=== PATIENT | female | born 1975 | race Caucasian/White ===

== ENCOUNTER 2021-04-19 06:19 | Day surgery (SDC) | payer BC ==
[2021-04-19] MEDS ORDERED: Lactated Ringers 1,000 ML IV SCH (06:30)
[2021-04-19] MEDS ORDERED: Xylocaine-Mpf 2% 5 Ml Vial ONE (07:56)
[2021-04-19] MEDS ORDERED: DIPRIVAN 200 MG/20 ML IV ONE ×2 (07:56→08:07)
[2021-04-19] MEDS ORDERED: SUBLIMAZE 100 MCG/2 ML ONE (07:59)
[2021-04-19 09:32] VITALS: BP 122/89; PULSE 71; O2SAT 96
--- NOTE | 2021-04-19 12:27 | OP ---
SURGERY DATE/TIME: 04/19/2021 0756 PREOPERATIVE DIAGNOSIS: Rectal bleeding. POSTOPERATIVE DIAGNOSIS: Early sigmoid diverticulosis, external hemorrhoids otherwise normal colon. PROCEDURE: Colonoscopy. SURGEON: Dr. Romero. ANESTHESIA: MAC. Medications given by anesthesia department. HISTORY: The patient is a 46-year-old white female who reports that she has been bleeding over the past couple of week's bright red in nature and lower quadrant abdomen pain, which was felt to be diverticulosis which is treated with Levaquin. The patient reports that the pain is essentially almost gone at this point. The patient reports that her mother has had colon polyps and is concerned and wishes to have colon evaluation performed. The patient was described the risks of the procedure including the risk of perforation, phlebitis, untoward reaction to medication, bleeding and missed lesions. The patient verbalized her understanding and desired to have the procedure performed. DESCRIPTION OF PROCEDURE: The patient was given the medications by the anesthesia department. She had continuous pulse oximetry, ECG monitoring, intermittent blood pressure monitoring. She is placed in the left lateral decubitus position. Digital rectal examination was performed and revealed external hemorrhoids and no active bleeding. No masses were felt. The flexible Olympus pediatric colonoscope was used to intubate the rectum. A view of the colon was developed sequentially to the cecum including a short distance into the terminal ileum. Upon insertion and withdrawal, there was noted to be scattered, very mild early sigmoid diverticulosis. There were no bleeding lesions noted throughout the examination. The scope was removed from the patient who tolerated the procedure well and was sent back to OP recovery in good condition. The prep was noted to be good.
== END 2021-04-19 09:30 | disposition home or self-care (01) ==
LOC: SDC 06:19
PROVIDERS: ATTEND Family Medicine
DX: K57.30 Diverticulosis of large intestine without perforation or abscess without bleeding (principal); K64.4 Residual hemorrhoidal skin tags
CPT/HCPCS: J2704; J3010

== ENCOUNTER 2021-10-03 13:06 | Emergency (ER) | payer BC ==
--- NOTE | 2021-10-03 13:37 | ERPHSYRPT ---
- History of Present Illness Time Seen by Provider: 10/03/21 13:20 Source: patient Exam Limitations: no limitations Patient Subjective Stated Complaint: Fever Triage Nursing Assessment: Patient brought back to ED per w/c and transferred to bed with assist of 1. Patient A+O X 3. Patient's skin flushed, warm and dry. Patient complains of fever, cough, SOB, headache, bodyaches, and fatigue since Sunday. Patient complains of body aches /. Physician History: Patient is a 46-year-old female presents to emergency department for evaluation of viral-like symptoms. Patient has been experiencing fever cough shortness of breath nausea vomiting diarrhea body aches frontal headache and fatigue for approximately 3 days. Patient took ibuprofen this morning. Patient rates her body aches at 10 out of 10. No trauma. No rash. Symptoms are constant. Symptoms are moderate in intensity. No specific worsening improving factors. Patient is not vaccinated against COVID-19. No obvious sick contacts. Patient voices no other complaints or concerns at this time. Portions of this note were created with voice recognition technology. 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 Exact time is unknown.) Associated Symptoms: cough, headache, nausea/vomiting, shortness of breath Allergies/Adverse Reactions: No Known Drug Allergies Allergy (Verified 10/03/21 13:15) Home Medications: Bumetanide 1 mg PO DAILY 04/13/21 [History] Citalopram Hydrobromide 20 mg* [ceLEXa 20 MG] 20 mg PO DAILY 04/13/21 [History] Furosemide 20 mg [Lasix 20 mg] 20 mg PO DAILY 04/13/21 [History] Hydrochlorothiazide 25 mg [hydroDIURIL 25 MG] 25 mg PO DAILY 04/13/21 [History] Omeprazole 40 mg PO DAILY 04/13/21 [History] Potassium Chloride [Klor-Con M20] 20 meq PO UD 04/13/21 [History] Sumatriptan Succinate [Imitrex] 100 mg PO UD 04/13/21 [History] Buspirone HCl 5 mg [Buspar 5 mg] 5 mg PO DAILY 04/19/21 [History] levoFLOXacin [Levofloxacin] 500 mg PO DAILY 04/19/21 [History] Hx Tetanus, Diphtheria Vaccination/Date Given: Yes Hx Influenza Vaccination/Date Given: No Hx Pneumococcal Vaccination/Date Given: No Immunizations Up to Date: Yes Travel Risk - International Travel Have you traveled outside of the country in past 3 weeks: No - Coronavirus Screening Are you exhibiting any of the following symptoms?: No Symptoms: Fever, Cough: New Onset, Shortness of Breath, Vomiting/Diarrhea, H eadaches/Body Aches/Fatigue Close contact with a COVID-19 positive Pt in past 14-21 Days: No - Vaccine Status Have you recieved a Covid-19 vaccination: No - Review of Systems Constitutional: No Symptoms, No Fever, No Chills Eyes: No Symptoms Ears, Nose, & Throat: No Symptoms Respiratory: No Symptoms, No Cough, No Dyspnea Cardiac: No Symptoms, No Chest Pain, No Edema, No Syncope Abdominal/Gastrointestinal: No Symptoms, No Abdominal Pain, No Nausea, No Vomiting, No Diarrhea Genitourinary Symptoms: No Symptoms, No Dysuria Musculoskeletal: No Symptoms, No Back Pain, No Neck Pain Skin: No Symptoms, No Rash Neurological: No Symptoms, No Dizziness, No Focal Weakness, No Sensory Changes Psychological: No Symptoms Endocrine: No Symptoms Hematologic/Lymphatic: No Symptoms Immunological/Allergic: No Symptoms All Other Systems: Reviewed and Negative - Past Medical History Pertinent Past Medical History: No Neurological History: Migraines ENT History: No Pertinent History Cardiac History: No Pertinent History Respiratory History: No Pertinent History Endocrine Medical History: No Pertinent History Musculoskeletal History: No Pertinent History GI Medical History: No Pertinent History History: No Pertinent History Psycho-Social History: Anxiety Female Reproductive Disorders: No Pertinent History Other Medical History: leaky heart valve - Past Surgical History Past Surgical History: Yes Neuro Surgical History: No Pertinent History Cardiac: No Pertinent History Respiratory: No Pertinent History Gastrointestinal: No Pertinent History Genitourinary: No Pertinent History Musculoskeletal: No Pertinent History Female Surgical History: Tubal Ligation Other Surgical History: skin cancer removed - Social History Smoking Status: Never smoker Exposure to second hand smoke: Yes Drug Use: none Patient Lives Alone: No - Female History Hx Last Menstrual Period: last week Hx Now: No - Nursing Vital Signs Nursing Vital Signs: Initial Vital Signs Temperature 103.1 F 10/03/21 13:16 Pulse Rate 94 H 10/03/21 13:16 Respiratory Rate 18 10/03/21 13:16 Blood Pressure 137/85 10/03/21 13:16 O2 Sat by Pulse Oximetry 98 10/03/21 13:16 Pain Scale Pain Intensity 2 - Physical Exam General Appearance: alert, other (Skin is warm to touch) Eye Exam: PERRL/EOMI, eyes nml inspection, No post op pupil defect (R) ENT Exam: normal ENT inspection, no apparent trauma, hearing grossly normal, TMs normal, pharynx normal, nasal congestion, No pharyngeal erythema, No tonsillar exudate Neck Exam: normal inspection, supple, full range of motion, No meningismus Respiratory Exam: normal breath sounds, lungs clear, no respiratory distress, No no accessory muscle use, No decreased breath sounds Cardiovascular/Chest Exam: normal heart sounds, regular rate/rhythm, No murmur, No edema Gastrointestinal/Abdominal Exam: soft, non tender, no distention Extremity Exam: non-tender, normal range of motion, normal inspection, normal capillary refill Neurologic Exam: alert, oriented x 3, cooperative, communications tower climber II-XII nml as tested, normal mood/affect, sensation nml, No motor deficits Skin Exam: normal color, warm, dry, No rash Lymphatic: No adenopathy SpO2 Interpretation: normal SpO2: 98 O2 Delivery: Room Air - Course Nursing assessment & vital signs reviewed: Yes EKG Interpreted by Me: RATE (98), Sinus Rhythm, NORMAL AXIS, NORMAL INTERVALS - Radiology Exams Chest X-ray Interpretation: Teleradiologist Report (Negative chest x-ray.) Ordered Tests: Active Orders 24 hr Category Date Time Status IV Insertion STAT Care 10/03/21 13:38 Active Pulse Oximetry (ED) STAT Care 10/03/21 13:38 Active CHEST 1 VIEW (PORTABLE) Stat Exams 10/03/21 13:39 Completed BLOOD CULTURE Stat Lab 10/03/21 14:00 Received CBC W DIFF Stat Lab 10/03/21 13:20 Completed CMP Stat Lab 10/03/21 13:20 Completed CULTURE,URINE Stat Lab 10/03/21 14:54 Received HCG,QUALITATIVE URINE Stat Lab 10/03/21 14:54 Completed Lactic Acid Stat Lab 10/03/21 13:38 Completed Lactic Acid Stat Lab 10/03/21 15:53 Completed UA W/RFX CULTURE Stat Lab 10/03/21 14:54 Completed Medication Summary Generic Name Dose Route Start Last Admin Trade Name Kristen PRN Reason Stop Dose Admin Magnesium Sulfate/Dextrose 100 mls @ 100 mls/hr 10/03/21 15:15 10/03/21 15:57 Magnesium 1 Gm / 100 Ml D5w IV 10/03/21 17:14 100 mls/hr Q1H KADIE Administration Discontinued Medications Generic Name Dose Route Start Last Admin Trade Name Kristen PRN Reason Stop Dose Admin Acetaminophen 975 mg 10/03/21 13:38 10/03/21 14:09 Acetaminophen 325 Mg Tablet PO 10/03/21 13:39 975 mg STAT STA Administration Acetaminophen Confirm 10/03/21 14:03 Acetaminophen 325 Mg Tablet Administered 10/03/21 14:04 Dose 975 mg .ROUTE .STK-MED ONE Sodium Chloride 1,000 mls @ 999 mls/hr 10/03/21 13:38 10/03/21 15:16 Sodium Chloride 0.9% 1000 Ml IV 10/03/21 14:38 Infused .Q1H1M STA Infusion Sodium Chloride Confirm 10/03/21 14:04 Sodium Chloride 0.9% 1000 Ml Administered 10/03/21 14:05 Dose 1,000 mls @ ud .ROUTE .STK-MED ONE Sodium Chloride 1,000 mls @ 999 mls/hr 10/03/21 15:17 10/03/21 16:33 Sodium Chloride 0.9% 1000 Ml IV 10/03/21 16:17 Infused .Q1H1M STA Infusion Sodium Chloride Confirm 10/03/21 15:18 Sodium Chloride 0.9% 1000 Ml Administered 10/03/21 15:19 Dose 1,000 mls @ ud .ROUTE .STK-MED ONE Ceftriaxone Sodium/Dextrose 1 g in 50 mls @ 100 mls/hr 10/03/21 16:02 10/03/21 17:06 Rocephin 1 Gm-D5w 50 Ml Bag IV 10/03/21 16:31 Infused STAT STA Infusion Ceftriaxone Sodium/Dextrose Confirm 10/03/21 16:23 Rocephin 1 Gm-D5w 50 Ml Bag Administered 10/03/21 16:24 Dose 1 g in 50 mls @ ud IV .STK-MED ONE Ketorolac Tromethamine 30 mg 10/03/21 13:40 10/03/21 14:10 Ketorolac Tromethamine 30 Mg/Ml Inj IV 10/03/21 13:41 30 mg STAT ONE Administration Ketorolac Tromethamine Confirm 10/03/21 14:03 Ketorolac Tromethamine 30 Mg/Ml Inj Administered 10/03/21 14:04 Dose 30 mg .ROUTE .STK-MED ONE Potassium Chloride 40 meq 10/03/21 15:11 10/03/21 15:20 Potassium Chloride Tab 10 Meq Tab PO 10/03/21 15:12 40 meq STAT ONE Administration Potassium Chloride Confirm 10/03/21 15:18 Potassium Chloride Tab 10 Meq Tab Administered 10/03/21 15:19 Dose 40 meq PO .STK-MED ONE Prochlorperazine Edisylate 10 mg 10/03/21 13:40 10/03/21 14:11 Prochlorperazine Edisylate 10 Mg/2 Ml Vial IV 10/03/21 13:41 10 mg STAT ONE Administration Prochlorperazine Edisylate Confirm 10/03/21 14:04 Prochlorperazine Edisylate 10 Mg/2 Ml Vial Administered 10/03/21 14:05 Dose 10 mg .ROUTE .STK-MED ONE Lab/Rad Data: Laboratory Result Diagrams 10/03/21 13:20 10/03/21 13:20 Laboratory Results 10/03/21 10/03/21 10/03/21 Range/Units Unknown 15:53 14:54 WBC (4.0-10.5) x10^3/uL RBC (4.1-5.4) x10^6/uL Hgb (12.0-16.0) g/dL Hct (35-47) % MCV (78-100) fL MCH (26-32) pg MCHC (32-36) g/dL RDW (11.5-14.0) % Plt Count (150-450) x10^3/uL MPV (7.5-11.0) fL Gran % (36.0-66.0) % Immature Gran % (Auto) (0.00-0.4) % Nucleat RBC Rel Count (0.00-0.1) % Eos # (Auto) (0-0.5) x10^3/uL Immature Gran # (Auto) (0.00-0.03) x10^3u/L Absolute Lymphs (auto) (1.0-4.6) x10^3/uL Absolute Monos (auto) (0.0-1.3) x10^3/uL Absolute Nucleated RBC (0.00-0.01) x10^3u/L Lymphocytes % (24.0-44.0) % Monocytes % (0.0-12.0) % Eosinophils % (0.00-5.0) % Basophils % (0.0-0.4) % Absolute Granulocytes (1.4-6.9) x10^3/uL Basophils # (0-0.4) x10^3/uL Sodium (137-145) mmol/L Potassium (3.5-5.1) mmol/L Chloride (98-107) mmol/L Carbon Dioxide (22-30) mmol/L Anion Gap (5-15) MEQ/L BUN (7-17) mg/dL Creatinine (0.52-1.04) mg/dL Estimated GFR ML/MIN Glucose (74-106) mg/dL Lactic Acid 0.7 (0.4-2.0) Calcium (8.4-10.2) mg/dL Total Bilirubin (0.2-1.3) mg/dL AST (14-36) U/L ALT (0-35) U/L Alkaline Phosphatase (38-126) U/L Serum Total Protein (6.3-8.2) g/dL Albumin (3.5-5.0) g/dL Urinalys Dipstick Clnc MAIN LAB Urine Color DARK YELLOW (YELLOW) Urine Appearance SLIGHTLY CLOUDY (CLEAR) Urine pH 6.0 (5-6) Ur Specific [place] 1.020 (1.005-1.025) POC Urine Protein Conf 100 (Negative) Urine Ketones NEGATIVE (NEGATIVE) Urine Nitrite NEGATIVE (NEGATIVE) Urine Bilirubin NEGATIVE (NEGATIVE) Urine Urobilinogen 1 (0-1) mg/dL Urine Leukocytes SMALL (NEGATIVE) Urine WBC (Auto) >100 (0-5) /HPF Urine RBC (Auto) 6-10 (0-2) /HPF U Epithel Cells (Auto) RARE (FEW) /HPF Urine Bacteria (Auto) PACKED (NEGATIVE) /HPF Urine RBC MODERATE (0-5) Pk/ul Urine Mucus (Auto) SLIGHT (NEGATIVE) /HPF Ur Culture Indicated? YES Urine Glucose 100 (NEGATIVE) mg/dL Urine HCG, Qual (Negative) Influenza Type A Ag NEGATIVE (NEGATIVE) Influenza Type B Ag NEGATIVE (NEGATIVE) RSV (PCR) NEGATIVE (Negative) SARS-CoV-2 (PCR) NEGATIVE (NEGATIVE) Slides for Path Review 10/03/21 10/03/21 10/03/21 Range/Units 14:54 13:38 13:20 WBC (4.0-10.5) x10^3/uL RBC (4.1-5.4) x10^6/uL Hgb (12.0-16.0) g/dL Hct (35-47) % MCV (78-100) fL MCH (26-32) pg MCHC (32-36) g/dL RDW (11.5-14.0) % Plt Count (150-450) x10^3/uL MPV (7.5-11.0) fL Gran % (36.0-66.0) % Immature Gran % (Auto) (0.00-0.4) % Nucleat RBC Rel Count (0.00-0.1) % Eos # (Auto) (0-0.5) x10^3/uL Immature Gran # (Auto) (0.00-0.03) x10^3u/L Absolute Lymphs (auto) (1.0-4.6) x10^3/uL Absolute Monos (auto) (0.0-1.3) x10^3/uL Absolute Nucleated RBC (0.00-0.01) x10^3u/L Lymphocytes % (24.0-44.0) % Monocytes % (0.0-12.0) % Eosinophils % (0.00-5.0) % Basophils % (0.0-0.4) % Absolute Granulocytes (1.4-6.9) x10^3/uL Basophils # (0-0.4) x10^3/uL Sodium 130 L (137-145) mmol/L Potassium 3.0 L* (3.5-5.1) mmol/L Chloride 93 L (98-107) mmol/L Carbon Dioxide 26 (22-30) mmol/L Anion Gap 14.0 (5-15) MEQ/L BUN 20 H (7-17) mg/dL Creatinine 1.27 H (0.52-1.04) mg/dL Estimated GFR 48.1 ML/MIN Glucose 212 H (74-106) mg/dL Lactic Acid 2.2 H (0.4-2.0) Calcium 8.8 (8.4-10.2) mg/dL Total Bilirubin 0.70 (0.2-1.3) mg/dL AST 43 H (14-36) U/L ALT 28 (0-35) U/L Alkaline Phosphatase 102 (38-126) U/L Serum Total Protein 7.9 (6.3-8.2) g/dL Albumin 3.9 (3.5-5.0) g/dL Urinalys Dipstick Clnc Urine Color (YELLOW) Urine Appearance (CLEAR) Urine pH (5-6) Ur Specific [place] (1.005-1.025) POC Urine Protein Conf (Negative) Urine Ketones (NEGATIVE) Urine Nitrite (NEGATIVE) Urine Bilirubin (NEGATIVE) Urine Urobilinogen (0-1) mg/dL Urine Leukocytes (NEGATIVE) Urine WBC (Auto) (0-5) /HPF Urine RBC (Auto) (0-2) /HPF U Epithel Cells (Auto) (FEW) /HPF Urine Bacteria (Auto) (NEGATIVE) /HPF Urine RBC (0-5) Pk/ul Urine Mucus (Auto) (NEGATIVE) /HPF Ur Culture Indicated? Urine Glucose (NEGATIVE) mg/dL Urine HCG, Qual NEGATIVE (Negative) Influenza Type A Ag (NEGATIVE) Influenza Type B Ag (NEGATIVE) RSV (PCR) (Negative) SARS-CoV-2 (PCR) (NEGATIVE) Slides for Path Review 10/03/21 Range/Units 13:20 WBC 5.6 (4.0-10.5) x10^3/uL RBC 4.93 (4.1-5.4) x10^6/uL Hgb 12.5 (12.0-16.0) g/dL Hct 38.5 (35-47) % MCV 78.1 (78-100) fL MCH 25.4 L (26-32) pg MCHC 32.5 (32-36) g/dL RDW 16.0 H (11.5-14.0) % Plt Count 143 L (150-450) x10^3/uL MPV 11.1 H (7.5-11.0) fL Gran % 77.0 H (36.0-66.0) % Immature Gran % (Auto) 0.5 H (0.00-0.4) % Nucleat RBC Rel Count 0.0 (0.00-0.1) % Eos # (Auto) 0 (0-0.5) x10^3/uL Immature Gran # (Auto) 0.03 (0.00-0.03) x10^3u/L Absolute Lymphs (auto) 0.64 L (1.0-4.6) x10^3/uL Absolute Monos (auto) 0.61 (0.0-1.3) x10^3/uL Absolute Nucleated RBC 0.00 (0.00-0.01) x10^3u/L Lymphocytes % 11.4 L (24.0-44.0) % Monocytes % 10.9 (0.0-12.0) % Eosinophils % 0.0 (0.00-5.0) % Basophils % 0.2 (0.0-0.4) % Absolute Granulocytes 4.30 (1.4-6.9) x10^3/uL Basophils # 0.01 (0-0.4) x10^3/uL Sodium (137-145) mmol/L Potassium (3.5-5.1) mmol/L Chloride (98-107) mmol/L Carbon Dioxide (22-30) mmol/L Anion Gap (5-15) MEQ/L BUN (7-17) mg/dL Creatinine (0.52-1.04) mg/dL Estimated GFR ML/MIN Glucose (74-106) mg/dL Lactic Acid (0.4-2.0) Calcium (8.4-10.2) mg/dL Total Bilirubin (0.2-1.3) mg/dL AST (14-36) U/L ALT (0-35) U/L Alkaline Phosphatase (38-126) U/L Serum Total Protein (6.3-8.2) g/dL Albumin (3.5-5.0) g/dL Urinalys Dipstick Clnc Urine Color (YELLOW) Urine Appearance (CLEAR) Urine pH (5-6) Ur Specific [place] (1.005-1.025) POC Urine Protein Conf (Negative) Urine Ketones (NEGATIVE) Urine Nitrite (NEGATIVE) Urine Bilirubin (NEGATIVE) Urine Urobilinogen (0-1) mg/dL Urine Leukocytes (NEGATIVE) Urine WBC (Auto) (0-5) /HPF Urine RBC (Auto) (0-2) /HPF U Epithel Cells (Auto) (FEW) /HPF Urine Bacteria (Auto) (NEGATIVE) /HPF Urine RBC (0-5) Pk/ul Urine Mucus (Auto) (NEGATIVE) /HPF Ur Culture Indicated? Urine Glucose (NEGATIVE) mg/dL Urine HCG, Qual (Negative) Influenza Type A Ag (NEGATIVE) Influenza Type B Ag (NEGATIVE) RSV (PCR) (Negative) SARS-CoV-2 (PCR) (NEGATIVE) Slides for Path Review YES - Progress Progress: improved Progress Note: Patient reassessed. She states she feels much better. Patient requesting discharge. Work-up significant for urinary tract infection. Rocephin infused. Patient received 2 L of IV fluids. Initial work-up revealed a lactic acidosis. However repeat lactic acid level was 0.7. Patient was febrile at 103. Fever resolved. COVID test negative. Hyponatremia of 130 treated with 2 L of IV fluids. Patient received an oral dose of potassium to treat the serum potassium level 3.0. Dehydration observed on laboratory work-up treated with IV fluids. Chest x-ray negative for infiltrates/consolidation 10/03/21 17:31 A prescription for Keflex will be forwarded to patient's pharmacy. Patient agrees to follow-up with primary care doctor within 48 hours for evaluation. Dictation disclaimer 10/03/21 17:33 Counseled pt/family regarding: lab results, diagnosis, need for follow-up, rad results - Departure Departure Disposition: Home Clinical Impression: Thrombocytopenia, Hypokalemia, Hyponatremia, Acute renal injury, Lactic acidosis, Fever, UTI (urinary tract infection), Dehydration Condition: Stable Critical Care Time: No Referrals: KRISTIN BENAVIDES [Primary Care Provider] - Follow up/PCP as directed Additional Instructions: Discharge/Care Plan ARNELJEY ARMAS was seen on 10/03/21 in the Emergency Room. The patient was counseled regarding Diagnosis,Lab results, Imaging studies, need for follow up and when to return to the Emergency Room. Prescriptions given: Discharge Note I have spoken with the patient and/or caregivers. I have explained the patient's condition, diagnosis and treatment plan based on the information available to me at this time. I have answered the patient's and/or caregiver's questions and addressed any concerns. The patient and/or caregivers have as good understanding of the patient's diagnosis, condition and treatment plan as can be expected at this point. The vital signs have been stable. The patient's condition is stable and appropriate for discharge from the emergency department. The patient will pursue further outpatient evaluation with the primary care physician or other designated or consulting physician as outlined in the discharge instructions. The patient and/or caregivers are agreeable to this plan of care and follow-up instructions have been explained in detail. The patient and/or caregivers have received these instruction. The patient/and or caregivers are aware that any significant change in condition or worsening of symptoms should prompt an immediate return to this or the closest emergency department or call 911. Prescriptions: Cephalexin Mh 500 mg [Keflex 500 mg] 500 mg PO TID #21 cap
[2021-10-03] MEDS ORDERED: TYLENOL 325 MG PO STA (13:38)
[2021-10-03] MEDS ORDERED: Sodium Chloride 0.9% 1000 ML 1,000 ML IV STA ×2 (13:38→15:17)
[2021-10-03] MEDS ORDERED: TORAdol 30 mg Injection IV ONE (13:40)
[2021-10-03] MEDS ORDERED: Compazine 10 MG/2 ML IV ONE (13:40)
[2021-10-03] MEDS ORDERED: TYLENOL 325 MG ONE (14:03)
[2021-10-03] MEDS ORDERED: TORAdol 30 mg Injection ONE (14:03)
[2021-10-03] MEDS ORDERED: Compazine 10 MG/2 ML ONE (14:04)
[2021-10-03] MEDS ORDERED: Sodium Chloride 0.9% 1000 ML 1,000 ML ONE ×2 (14:04→15:18)
[2021-10-03 14:14] LABS: Basophil (Absolute #) 0.01 x10^3/uL (0-0.4); Eosinophil (Absolute #) 0 x10^3/uL (0-0.5); Hematocrit 38.5 % (35-47); Hemoglobin 12.5 g/dL (12.0-16.0); Lymphocyte (Absolute #) 0.64 x10^3/uL (1.0-4.6); Lymphocytes % 11.4 % (24.0-44.0); Mean Cell Volume 78.1 fL (78-100); Mean Corpuscular Hemoglobin 25.4 pg (26-32); Mean Corpuscular Hgb Concent. 32.5 g/dL (32-36); Mean Platelet Volume 11.1 fL (7.5-11.0); Monocyte (Absolute #) 0.61 x10^3/uL (0.0-1.3); Monocytes % 10.9 % (0.0-12.0); Platelet Count 143 x10^3/uL (150-450); Red Blood Count 4.93 x10^6/uL (4.1-5.4); White Blood Count 5.6 x10^3/uL (4.0-10.5)
[2021-10-03 14:30] LABS: ALBUMIN 3.9 g/dL (3.5-5.0); BILIRUBIN,TOTAL 0.7 mg/dL (0.2-1.3); Calcium 8.8 mg/dL (8.4-10.2); Creatinine 1 1.27 mg/dL (0.52-1.04); EST GLOMERULAR FILTRATION RATE 48.1 ML/MIN; Total Protein 7.9 g/dL (6.3-8.2)
[2021-10-03 14:49] LABS: INFLUENZA A NEGATIVE (NEGATIVE); INFLUENZA B NEGATIVE (NEGATIVE); RESPIRATORY SYNCTIAL VIRUS NEGATIVE (Negative); SARS-CoV-2 Xpert Express NEGATIVE (NEGATIVE)
[2021-10-03] MEDS ORDERED: Klor Con PO ONE ×2 (15:11→15:18)
[2021-10-03] MEDS ORDERED: Magnesium 1 Gm / 100 Ml D5W*** 100 ML IV ONE ×2 (15:18→15:56)
[2021-10-03] MEDS: Magnesium 1 Gm / 100 Ml D5W*** 100 ML IV SCH ×2 (15:20→15:57)
[2021-10-03 15:39] LABS: Appearance SLIGHTLY CLOUDY (CLEAR); Bilirubin NEGATIVE (NEGATIVE); Glucose 100 mg/dL (NEGATIVE); Ketones NEGATIVE (NEGATIVE); Protein,Urine Dip 100 (Negative); RBC MODERATE Ery/ul (0-5); Urobilinogen 1 mg/dL (0-1)
[2021-10-03 15:40] LABS: Dipstick done @ ? MAIN LAB; Nitrite NEGATIVE (NEGATIVE); Urine Cultured Indicated? YES
[2021-10-03 15:42] LABS: Bacteria PACKED /HPF (NEGATIVE); Epithelial Cells RARE /HPF (FEW); Mucus SLIGHT /HPF (NEGATIVE); WBC >100 /HPF (0-5)
[2021-10-03] MEDS ORDERED: ROCEPHIN 1 Gm-D5w 50 ml Bag** 1 G/50 ML IVPB IV STA (16:02)
--- NOTE | 2021-10-03 16:19 | XRAY ---
Indication: Pneumonia. Comparison: September 07, 2014. Portable chest again demonstrates normal heart and lungs. Bony thorax intact. No new/acute findings.
[2021-10-03] MEDS ORDERED: ROCEPHIN 1 Gm-D5w 50 ml Bag** 1 G/50 ML IVPB IV ONE (16:23)
[2021-10-03 17:28] LABS: Slide Review 1 YES
[2021-10-03 17:42] VITALS: BP 99/57; PULSE 63; O2SAT 97
== END 2021-10-03 17:55 | disposition home or self-care (01) ==
LOC: ED 13:06
DX: N39.0 Urinary tract infection, site not specified (principal); N17.9 Acute kidney failure, unspecified; D69.6 Thrombocytopenia, unspecified; E87.6 Hypokalemia; E87.1 Hypo-osmolality and hyponatremia; E86.0 Dehydration; E87.2 Acidosis; R50.9 Fever, unspecified; R05.1 Acute cough; R06.02 Shortness of breath; R11.2 Nausea with vomiting, unspecified; R19.7 Diarrhea, unspecified; M79.10 Myalgia, unspecified site; R51.9 Headache, unspecified; R53.83 Other fatigue; Z79.899 Other long term (current) drug therapy; Z28.310 Unvaccinated for COVID-19
CPT/HCPCS: 0241U; 36000; 36415; 71045; 80053; 81015; 81025; 83605; 85025; 87040; 87086; 94760; 96360; 96361; 96365; 96366; 96367; 96374; 96375; 99285; 87077; 87186; J0696; J1885; J3475; A9270-GY

== ENCOUNTER 2021-10-07 16:46 | Emergency (ER) | payer BC ==
--- NOTE | 2021-10-07 17:02 | ERPHSYRPT ---
- History of Present Illness Time Seen by Provider: 10/07/21 17:01 Source: patient Exam Limitations: no limitations Physician History: This is a 46-year-old white female patient of Dr. Flaquito Lozano who was seen here in the emergency department on 10/03/2021 and diagnosed with fever and urinary tract infection. She did have hyponatremia and hypokalemia with levels of 130 and 3.0 respectively. Patient was treated with intravenous fluids of normal saline and given potassium supplementation. She has had symptoms of body aches and fatigue as well as weakness in the last approximately 7 days. Symptoms have not improved per her report. Patient was placed on antibiotic and then yesterday, the antibiotics were changed by nurse practitioner Janna Horner based on culture result. Patient's potassium yesterday was 3.0. Given the fact the patient is weak and having fatigue and persistent body aches patient was sent to the emergency room for reevaluation. Patient has a history of mitral valve prolapse, anxiety and migraine headaches. Patient does not have chest pain or shortness of breath at this time. Patient did have negative COVID, RSV and influenza a and B test results on 10/03/2021. Timing/Duration: day(s) (7), worse Severity: moderate Associated Symptoms: nausea, loss of appetite, malaise, weakness, No shortness of breath, No chest pain Allergies/Adverse Reactions: No Known Drug Allergies Allergy (Verified 10/07/21 17:06) Home Medications: Bumetanide 1 mg PO DAILY 04/13/21 [History] Citalopram Hydrobromide 20 mg* [ceLEXa 20 MG] 20 mg PO DAILY 04/13/21 [History] Furosemide 20 mg [Lasix 20 mg] 20 mg PO DAILY 04/13/21 [History] Hydrochlorothiazide 25 mg [hydroDIURIL 25 MG] 25 mg PO DAILY 04/13/21 [History] Omeprazole 40 mg PO DAILY 04/13/21 [History] Potassium Chloride [Klor-Con M20] 20 meq PO UD 04/13/21 [History] Sumatriptan Succinate [Imitrex] 100 mg PO UD 04/13/21 [History] Buspirone HCl 5 mg [Buspar 5 mg] 5 mg PO DAILY 04/19/21 [History] Sulfamethoxazole/Trimethoprim [Bactrim Ds Tablet] 1 each PO BID 10/07/21 [History] Hx Tetanus, Diphtheria Vaccination/Date Given: Yes Hx Influenza Vaccination/Date Given: No Hx Pneumococcal Vaccination/Date Given: No Travel Risk - International Travel Have you traveled outside of the country in past 3 weeks: No - Coronavirus Screening Are you exhibiting any of the following symptoms?: Yes Symptoms: Fever, Headaches/Body Aches/Fatigue - Vaccine Status Have you recieved a Covid-19 vaccination: No - Review of Systems Constitutional: Weakness Eyes: No Symptoms Ears, Nose, & Throat: No Symptoms Respiratory: No Symptoms Cardiac: No Symptoms Abdominal/Gastrointestinal: No Symptoms Genitourinary Symptoms: No Symptoms Musculoskeletal: Arthralgias, Myalgias Skin: No Symptoms Neurological: No Symptoms Psychological: No Symptoms Endocrine: No Symptoms Hematologic/Lymphatic: No Symptoms Immunological/Allergic: No Symptoms All Other Systems: Reviewed and Negative - Past Medical History Pertinent Past Medical History: No Neurological History: Migraines ENT History: No Pertinent History Cardiac History: No Pertinent History Respiratory History: No Pertinent History Endocrine Medical History: No Pertinent History Musculoskeletal History: No Pertinent History GI Medical History: No Pertinent History History: No Pertinent History Psycho-Social History: Anxiety Female Reproductive Disorders: No Pertinent History Other Medical History: leaky heart valve - Past Surgical History Past Surgical History: Yes Neuro Surgical History: No Pertinent History Cardiac: No Pertinent History Respiratory: No Pertinent History Gastrointestinal: No Pertinent History Genitourinary: No Pertinent History Musculoskeletal: No Pertinent History Female Surgical History: Tubal Ligation Other Surgical History: skin cancer removed - Social History Smoking Status: Never smoker Exposure to second hand smoke: Yes Drug Use: none Patient Lives Alone: No - Nursing Vital Signs Nursing Vital Signs: Initial Vital Signs Temperature 97.3 F 10/07/21 16:59 Pulse Rate 56 L 10/07/21 16:59 Respiratory Rate 18 10/07/21 16:59 Blood Pressure 139/81 10/07/21 16:59 O2 Sat by Pulse Oximetry 99 10/07/21 16:59 Pain Scale Pain Intensity 5 - Physical Exam General Appearance: no apparent distress, alert, anxiety Eye Exam: PERRL/EOMI, eyes nml inspection Ears, Nose, Throat Exam: normal ENT inspection, moist mucous membranes Neck Exam: normal inspection, non-tender, supple, full range of motion Respiratory Exam: normal breath sounds, lungs clear, prolonged expirations, No chest tenderness, No respiratory distress Cardiovascular Exam: regular rate/rhythm, normal heart sounds, normal peripheral pulses Gastrointestinal/Abdomen Exam: soft, normal bowel sounds, No tenderness Pelvic Exam: not done Rectal Exam: not done Back Exam: normal inspection, normal range of motion, No CVA tenderness, No vertebral tenderness Extremity Exam: normal inspection, normal range of motion, pelvis stable Neurologic Exam: alert, oriented x 3, cooperative, 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-XII nml as tested, normal mood/affect, nml cerebellar function, nml station & gait, sensation nml Skin Exam: normal color, warm, dry Lymphatic Exam: No adenopathy SpO2 Interpretation: normal O2 Delivery: Room Air - Course Nursing assessment & vital signs reviewed: Yes EKG Interpreted by Me: RATE (51), Sinus Rhythm, NORMAL AXIS, NORMAL INTERVALS, NORMAL QRS, NORMAL ST-T, Other (No acute ischemic changes on today's EKG.) Ordered Tests: Active Orders 24 hr Category Date Time Status EKG-ER Only STAT Care 10/07/21 18:29 Active IV Insertion STAT Care 10/07/21 17:08 Active Pulse Oximetry (ED) STAT Care 10/07/21 18:29 Active BLOOD CULTURE Stat Lab 10/07/21 18:55 Received BMP Stat Lab 10/07/21 17:25 Completed CBC W DIFF Stat Lab 10/07/21 17:25 Completed CMP Stat Lab 10/07/21 17:25 Completed Lactic Acid Stat Lab 10/07/21 19:13 Completed MAG [MAGNESIUM] Stat Lab 10/07/21 17:25 Completed Manual Differential NC Stat Lab 10/07/21 17:25 Completed Tucker Screen Stat Lab 10/07/21 17:25 Completed NT PRO BNP Stat Lab 10/07/21 17:25 Completed TROPONIN Q3H Lab 10/07/21 17:25 Completed TROPONIN Q3H Lab 10/07/21 21:30 Ordered TROPONIN Q3H Lab 10/08/21 00:30 Ordered TROPONIN Q3H Lab 10/08/21 03:30 Ordered TROPONIN Q3H Lab 10/08/21 06:30 Ordered UA W/RFX CULTURE Stat Lab 10/07/21 19:34 Completed Medication Summary Discontinued Medications Generic Name Dose Route Start Last Admin Trade Name Freq PRN Reason Stop Dose Admin Sodium Chloride 1,000 mls @ 999 mls/hr 10/07/21 18:29 10/07/21 20:23 Sodium Chloride 0.9% 1000 Ml IV 10/07/21 19:29 Infused .Q1H1M STA Infusion Sodium Chloride Confirm 10/07/21 19:16 Sodium Chloride 0.9% 1000 Ml Administered 10/07/21 19:17 Dose 1,000 mls @ ud .ROUTE .STK-MED ONE Sodium Chloride 500 mls @ 500 mls/hr 10/07/21 20:28 10/07/21 20:54 Sodium Chloride 0.9% 500 Ml IV 10/07/21 21:27 500 mls/hr .Q1H ONE Administration Sodium Chloride Confirm 10/07/21 20:53 Sodium Chloride 0.9% 500 Ml Administered 10/07/21 20:54 Dose 500 mls @ ud IV .STK-MED ONE Lab/Rad Data: Laboratory Result Diagrams 10/07/21 17:25 10/07/21 17:25 Laboratory Results 10/07/21 10/07/21 10/07/21 Range/Units 19:34 19:18 19:13 WBC (4.0-10.5) x10^3/uL RBC (4.1-5.4) x10^6/uL Hgb (12.0-16.0) g/dL Hct (35-47) % MCV (78-100) fL MCH (26-32) pg MCHC (32-36) g/dL RDW (11.5-14.0) % Plt Count (150-450) x10^3/uL MPV (7.5-11.0) fL Segmented Neutrophils (36.0-66.0) % Band Neutrophils (0.0-2.0) % Lymphocytes (Manual) (24-44) % Monocytes (Manual) (0.0-12.0) % Eosinophils (Manual) (0.00-3.0) % Platelet Estimate (NORMAL) RBC Morphology Anisocytosis Sodium (137-145) mmol/L Potassium (3.5-5.1) mmol/L Chloride (98-107) mmol/L Carbon Dioxide (22-30) mmol/L Anion Gap (5-15) MEQ/L BUN (7-17) mg/dL Creatinine (0.52-1.04) mg/dL Estimated GFR ML/MIN Glucose (74-106) mg/dL Lactic Acid 1.2 (0.4-2.0) Calcium (8.4-10.2) mg/dL Magnesium (1.6-2.3) mg/dL Total Bilirubin (0.2-1.3) mg/dL AST (14-36) U/L ALT (0-35) U/L Alkaline Phosphatase (38-126) U/L Troponin I (0.000-0.034) ng/mL NT-Pro-B Natriuret Pep (0-450) pg/mL Serum Total Protein (6.3-8.2) g/dL Albumin (3.5-5.0) g/dL Urinalys Dipstick Clnc MAIN LAB Urine Color YELLOW (YELLOW) Urine Appearance CLEAR (CLEAR) Urine pH 6.0 (5-6) Ur Specific [place] 1.010 (1.005-1.025) POC Urine Protein Conf NEGATIVE (Negative) Urine Ketones NEGATIVE (NEGATIVE) Urine Nitrite NEGATIVE (NEGATIVE) Urine Bilirubin NEGATIVE (NEGATIVE) Urine Urobilinogen 0.2 (0-1) mg/dL Urine Leukocytes NEGATIVE (NEGATIVE) Urine WBC (Auto) 0-2 (0-5) /HPF U Epithel Cells (Auto) RARE (FEW) /HPF Urine Bacteria (Auto) RARE (NEGATIVE) /HPF Urine RBC NEGATIVE (0-5) Pk/ul Ur Culture Indicated? NO Urine Glucose NEGATIVE (NEGATIVE) mg/dL Monoscreen (Negative) Group A Strep Antibody NOT DETECTED (NEGATIVE) 10/07/21 10/07/21 10/07/21 Range/Units 17:25 17:25 17:25 WBC (4.0-10.5) x10^3/uL RBC (4.1-5.4) x10^6/uL Hgb (12.0-16.0) g/dL Hct (35-47) % MCV (78-100) fL MCH (26-32) pg MCHC (32-36) g/dL RDW (11.5-14.0) % Plt Count (150-450) x10^3/uL MPV (7.5-11.0) fL Segmented Neutrophils (36.0-66.0) % Band Neutrophils (0.0-2.0) % Lymphocytes (Manual) (24-44) % Monocytes (Manual) (0.0-12.0) % Eosinophils (Manual) (0.00-3.0) % Platelet Estimate (NORMAL) RBC Morphology Anisocytosis Sodium 133 L (137-145) mmol/L Potassium 3.5 (3.5-5.1) mmol/L Chloride 101 (98-107) mmol/L Carbon Dioxide 23 (22-30) mmol/L Anion Gap 12.5 (5-15) MEQ/L BUN 17 (7-17) mg/dL Creatinine 1.04 (0.52-1.04) mg/dL Estimated GFR > 60.0 ML/MIN Glucose 180 H (74-106) mg/dL Lactic Acid (0.4-2.0) Calcium 9.3 (8.4-10.2) mg/dL Magnesium (1.6-2.3) mg/dL Total Bilirubin 0.40 (0.2-1.3) mg/dL AST 45 H (14-36) U/L ALT 36 H (0-35) U/L Alkaline Phosphatase 85 (38-126) U/L Troponin I < 0.012 (0.000-0.034) ng/mL NT-Pro-B Natriuret Pep 151 (0-450) pg/mL Serum Total Protein 6.7 (6.3-8.2) g/dL Albumin 3.5 (3.5-5.0) g/dL Urinalys Dipstick Clnc Urine Color (YELLOW) Urine Appearance (CLEAR) Urine pH (5-6) Ur Specific [place] (1.005-1.025) POC Urine Protein Conf (Negative) Urine Ketones (NEGATIVE) Urine Nitrite (NEGATIVE) Urine Bilirubin (NEGATIVE) Urine Urobilinogen (0-1) mg/dL Urine Leukocytes (NEGATIVE) Urine WBC (Auto) (0-5) /HPF U Epithel Cells (Auto) (FEW) /HPF Urine Bacteria (Auto) (NEGATIVE) /HPF Urine RBC (0-5) Pk/ul Ur Culture Indicated? Urine Glucose (NEGATIVE) mg/dL Monoscreen NEGATIVE (Negative) Group A Strep Antibody (NEGATIVE) 10/07/21 10/07/21 Range/Units 17:25 17:25 WBC 10.1 (4.0-10.5) x10^3/uL RBC 4.79 (4.1-5.4) x10^6/uL Hgb 12.1 (12.0-16.0) g/dL Hct 37.7 (35-47) % MCV 78.7 (78-100) fL MCH 25.3 L (26-32) pg MCHC 32.1 (32-36) g/dL RDW 16.6 H (11.5-14.0) % Plt Count 361 (150-450) x10^3/uL MPV 11.8 H (7.5-11.0) fL Segmented Neutrophils 78 H (36.0-66.0) % Band Neutrophils 1 (0.0-2.0) % Lymphocytes (Manual) 14 L (24-44) % Monocytes (Manual) 6 (0.0-12.0) % Eosinophils (Manual) 1 (0.00-3.0) % Platelet Estimate NORMAL (NORMAL) RBC Morphology ABNORMAL Anisocytosis 1+ Sodium 134 L (137-145) mmol/L Potassium 3.1 L (3.5-5.1) mmol/L Chloride 99 (98-107) mmol/L Carbon Dioxide 21 L (22-30) mmol/L Anion Gap 16.7 H (5-15) MEQ/L BUN 18 H (7-17) mg/dL Creatinine 1.09 H (0.52-1.04) mg/dL Estimated GFR 57.4 ML/MIN Glucose 220 H (74-106) mg/dL Lactic Acid (0.4-2.0) Calcium 9.6 (8.4-10.2) mg/dL Magnesium 1.6 (1.6-2.3) mg/dL Total Bilirubin (0.2-1.3) mg/dL AST (14-36) U/L ALT (0-35) U/L Alkaline Phosphatase (38-126) U/L Troponin I (0.000-0.034) ng/mL NT-Pro-B Natriuret Pep (0-450) pg/mL Serum Total Protein (6.3-8.2) g/dL Albumin (3.5-5.0) g/dL Urinalys Dipstick Clnc Urine Color (YELLOW) Urine Appearance (CLEAR) Urine pH (5-6) Ur Specific [place] (1.005-1.025) POC Urine Protein Conf (Negative) Urine Ketones (NEGATIVE) Urine Nitrite (NEGATIVE) Urine Bilirubin (NEGATIVE) Urine Urobilinogen (0-1) mg/dL Urine Leukocytes (NEGATIVE) Urine WBC (Auto) (0-5) /HPF U Epithel Cells (Auto) (FEW) /HPF Urine Bacteria (Auto) (NEGATIVE) /HPF Urine RBC (0-5) Pk/ul Ur Culture Indicated? Urine Glucose (NEGATIVE) mg/dL Monoscreen (Negative) Group A Strep Antibody (NEGATIVE) - Progress Progress: improved, re-examined Progress Note: 10/07/21 21:49 Medical decision making: This patient has multiple vague complaints. There does not appear to be any admissible diagnoses in this patient. Patient's potassium is now in the normal range. Her sodium is now closer to normal. She has a normal anion gap. She has a normal lactic acid level. Her urinalysis is free of any infection. She had recent negative viral studies including negative COVID test. I spoke with Dr. Lizama who stated that she did not see any need to admit this patient. I agree with her. We will provide the patient with intravenous fluids. She is to continue the antibiotics as prescribed. Dr. Lizama stated that if the patient cannot get into see Dr. Flaquito Lozano this week, she will be available to see this patient in her office. Discussed with : Melyssa Counseled pt/family regarding: lab results, diagnosis, need for follow-up - Departure Departure Disposition: Home Clinical Impression: Generalized weakness Condition: Stable Critical Care Time: No Referrals: KRISTIN BENAVIDES [Primary Care Provider] - Follow up/PCP as directed Additional Instructions: Drink plenty of fluids. Continue antibiotics as prescribed. Follow-up with your primary care physician on 10/10/2021. If you cannot obtain an appointment with Dr. Flaquito Lozano next week, you can contact Dr. Lyles's office.
[2021-10-07 18:21] LABS: ANION GAP 16.7 MEQ/L (5-15); Calcium 9.6 mg/dL (8.4-10.2); Creatinine 1 1.09 mg/dL (0.52-1.04); EST GLOMERULAR FILTRATION RATE 57.4 ML/MIN; MAGNESIUM 1.6 mg/dL (1.6-2.3); Potassium 3.1 mmol/L (3.5-5.1)
[2021-10-07] MEDS ORDERED: Sodium Chloride 0.9% 1000 ML 1,000 ML IV STA (18:29)
[2021-10-07 19:16] LABS: Hematocrit 37.7 % (35-47); Hemoglobin 12.1 g/dL (12.0-16.0); Mean Cell Volume 78.7 fL (78-100); Mean Corpuscular Hemoglobin 25.3 pg (26-32); Mean Corpuscular Hgb Concent. 32.1 g/dL (32-36); Mean Platelet Volume 11.8 fL (7.5-11.0); Platelet Count 361 x10^3/uL (150-450); Red Blood Count 4.79 x10^6/uL (4.1-5.4); Red Cell Distribution Width 16.6 % (11.5-14.0); White Blood Count 10.1 x10^3/uL (4.0-10.5)
[2021-10-07] MEDS ORDERED: Sodium Chloride 0.9% 1000 ML 1,000 ML ONE (19:16)
[2021-10-07 19:41] LABS: ALBUMIN 3.5 g/dL (3.5-5.0); ALKALINE PHOSPHATASE 85 U/L (38-126); ANION GAP 12.5 MEQ/L (5-15); BLOOD UREA NITROGEN 17 mg/dL (7-17); CHLORIDE 101 mmol/L (98-107); Calcium 9.3 mg/dL (8.4-10.2); Carbon Dioxide 23 mmol/L (22-30); Creatinine 1 1.04 mg/dL (0.52-1.04); EST GLOMERULAR FILTRATION RATE > 60.0 ML/MIN; Glucose 180 mg/dL (74-106); NT PRO BNP 151 pg/mL (0-450); Potassium 3.5 mmol/L (3.5-5.1); SGOT/AST 45 U/L (14-36); SGPT/ALT 36 U/L (0-35); SODIUM 133 mmol/L (137-145); Total Protein 6.7 g/dL (6.3-8.2)
[2021-10-07 20:09] LABS: Appearance CLEAR (CLEAR); Bacteria RARE /HPF (NEGATIVE); Bilirubin NEGATIVE (NEGATIVE); Epithelial Cells RARE /HPF (FEW); Glucose NEGATIVE (NEGATIVE); WBC 0-2 /HPF (0-5)
[2021-10-07 20:10] LABS: Ketones NEGATIVE (NEGATIVE); Nitrite NEGATIVE (NEGATIVE); Protein,Urine Dip NEGATIVE (Negative); RBC NEGATIVE Ery/ul (0-5); Urine Cultured Indicated? NO; Urobilinogen 0.2 mg/dL (0-1)
[2021-10-07 20:11] LABS: Dipstick done @ ? MAIN LAB
[2021-10-07] MEDS ORDERED: Sodium Chloride 0.9% 500 ML 500 ML IV ONE ×2 (20:28→20:53)
[2021-10-07 20:38] LABS: ANISOCYTOSIS 1+; BAND 1 % (0.0-2.0); Eosinophil 1 % (0.00-3.0); Lymphocytes 14 % (24-44); Monocyte 6 % (0.0-12.0); Platelet Estimate NORMAL (NORMAL); Total Cells Counted 100
[2021-10-07 23:09] VITALS: BP 104/68; PULSE 85; O2SAT 98
== END 2021-10-07 23:20 | disposition home or self-care (01) ==
LOC: ED 16:46
DX: R53.1 Weakness (principal); R53.83 Other fatigue; M79.10 Myalgia, unspecified site; R11.0 Nausea; Z79.899 Other long term (current) drug therapy; Z28.310 Unvaccinated for COVID-19
CPT/HCPCS: 36000; 36415; 80048; 80053; 81015; 83605; 83735; 83880; 84484; 85025; 86308; 87040; 87651; 93005; 94760; 96360; 99284

== ENCOUNTER 2022-01-25 14:39 | Emergency (ER) | payer BC ==
--- NOTE | 2022-01-25 14:51 | ERPHSYRPT ---
- History of Present Illness Time Seen by Provider: 01/25/22 14:51 Historian: patient, EMS Exam Limitations: no limitations Patient Subjective Stated Complaint: chest pain, anxiety Triage Nursing Assessment: pt to ED by EMS c/o CP and anxiety onset approx 1 hr ago. pt states she had gall baldder removed Sunday and was going to lay down when CP started. initially rated 6/10 per EMS and pain was relieved to 2/10 after administration of 324 asa by EMS. pt rates 1/10 now, heaviness in character. denies radiation. pt appears tearful. "its going away now, I couldn't catch my breath earlier and it was very scary." Physician History: This is an obese 46-year-old white female patient of Dr. Flaquito Lozano who is status post laparoscopic cholecystectomy proximately 48 hours ago. Patient had sudden onset, approximately 1 hour prior to arrival, substernal, central, nonradiating heavy pressure "like an elephant sitting on her chest". In her emergency room her symptoms are beginning to resolve on their own. Patient did receive 324 mg of aspirin in route to the hospital by ambulance. Patient has pain at the abdominal wall incision sites. Timing/Duration: today Activities at Onset: none Quality: pressure Location: substernal, central Chest Pain Radiation: no radiation Severity of Pain-Max: moderate Severity of Pain-Current: mild Associated Symptoms: denies symptoms Prior Chest Pain/Cardiac Workup: no prior chest pain, no prior cardiac workup, non-cardiac Nitro Today/Relief: no nitro taken today Aspirin Treatment Today: 325 mg x 1, provided by EMS Allergies/Adverse Reactions: No Known Drug Allergies Allergy (Verified 01/25/22 14:42) Home Medications: Citalopram Hydrobromide 20 mg* [ceLEXa 20 MG] 20 mg PO DAILY 04/13/21 [History] Furosemide 20 mg [Lasix 20 mg] 20 mg PO DAILY 04/13/21 [History] Hydrochlorothiazide 25 mg [hydroDIURIL 25 MG] 25 mg PO DAILY 04/13/21 [History] Omeprazole 40 mg PO DAILY 04/13/21 [History] Potassium Chloride [Klor-Con M20] 20 meq PO UD 04/13/21 [History] Sumatriptan Succinate [Imitrex] 100 mg PO DAILY PRN PRN 04/13/21 [History] Buspirone HCl 5 mg [Buspar 5 mg] 5 mg PO DAILY 04/19/21 [History] Hx Tetanus, Diphtheria Vaccination/Date Given: Yes Hx Influenza Vaccination/Date Given: No Hx Pneumococcal Vaccination/Date Given: No Immunizations Up to Date: Yes Travel Risk - International Travel Have you traveled outside of the country in past 3 weeks: No - Coronavirus Screening Are you exhibiting any of the following symptoms?: No Close contact with a COVID-19 positive Pt in past 14-21 Days: No - Vaccine Status Have you recieved a Covid-19 vaccination: No - Review of Systems Constitutional: No Symptoms Eyes: No Symptoms Ears, Nose, & Throat: No Symptoms Respiratory: No Symptoms Cardiac: Chest Pain (Described as a heavy pressure) Abdominal/Gastrointestinal: Abdominal Pain (At the post laparoscopic cholecystectomy incision sites) Genitourinary Symptoms: No Symptoms Musculoskeletal: No Symptoms Skin: No Symptoms Neurological: No Symptoms Psychological: No Symptoms Endocrine: No Symptoms Hematologic/Lymphatic: No Symptoms Immunological/Allergic: No Symptoms All Other Systems: Reviewed and Negative - Past Medical History Pertinent Past Medical History: Yes Neurological History: Migraines ENT History: No Pertinent History Cardiac History: No Pertinent History Respiratory History: No Pertinent History Endocrine Medical History: No Pertinent History Musculoskeletal History: No Pertinent History GI Medical History: No Pertinent History History: No Pertinent History Psycho-Social History: Anxiety, Depression Female Reproductive Disorders: No Pertinent History Other Medical History: leaky heart valve - Past Surgical History Past Surgical History: Yes Neuro Surgical History: No Pertinent History Cardiac: No Pertinent History Respiratory: No Pertinent History Gastrointestinal: Cholecystectomy Genitourinary: No Pertinent History Musculoskeletal: Orthopedic Surgery Female Surgical History: Tubal Ligation Other Surgical History: skin cancer removed. L foot, pinched nerve repair - Social History Smoking Status: Never smoker Exposure to second hand smoke: Yes Drug Use: none Patient Lives Alone: No - Female History Hx Last Menstrual Period: last month Hx Now: No (tubal) - Nursing Vital Signs Nursing Vital Signs: Initial Vital Signs Temperature 98.6 F 01/25/22 14:43 Pulse Rate 67 01/25/22 14:43 Respiratory Rate 22 01/25/22 14:43 Blood Pressure 146/82 01/25/22 14:43 O2 Sat by Pulse Oximetry 99 01/25/22 14:43 Pain Scale Pain Intensity 1 - Physical Exam General Appearance: no apparent distress, alert, anxiety, obese Eye Exam: PERRL/EOMI, eyes nml inspection Ears, Nose, Throat Exam: normal ENT inspection, moist mucous membranes Neck Exam: normal inspection, non-tender, supple, full range of motion Respiratory Exam: normal breath sounds, chest tenderness, lungs clear, airway intact, No respiratory distress Cardiovascular Exam: regular rate/rhythm, normal heart sounds, normal peripheral pulses Gastrointestinal/Abdomen Exam: soft, normal bowel sounds, other (Laparoscopic incision sites of the abdominal wall are tender as expected. No evidence of infection. There is mild ecchymosis at the sites.) Pelvic Exam: not done Rectal Exam: not done Back Exam: normal inspection, normal range of motion, No CVA tenderness, No vertebral tenderness Extremity Exam: normal inspection, normal range of motion, pelvis stable Neurologic Exam: alert, oriented x 3, cooperative, conflicts analyst II-XII nml as tested, normal mood/affect, nml cerebellar function, nml station & gait, sensation nml Skin Exam: warm, dry, ecchymosis (At the abdominal wall laparoscopic cholecystectomy incision sites) Lymphatic Exam: No adenopathy SpO2 Interpretation: normal SpO2: 99 O2 Delivery: Room Air - Course Nursing assessment & vital signs reviewed: Yes EKG Interpreted by Me: RATE (65), Sinus Rhythm, NORMAL AXIS, NORMAL INTERVALS, NORMAL QRS, Non-specific ST Changes (Anterolateral leads), Other (No acute ischemic changes on today's twelve-lead EKG) Ordered Tests: Active Orders 24 hr Category Date Time Status EKG-ER Only STAT Care 01/25/22 14:52 Active IV Insertion STAT Care 01/25/22 14:52 Active Pulse Oximetry (ED) STAT Care 01/25/22 14:52 Active CHEST 1 VIEW (PORTABLE) Stat Exams 01/25/22 14:52 Completed CHEST WITH CONTRAST [CT] Stat Exams 01/25/22 15:55 Completed CBC W DIFF Stat Lab 01/25/22 15:19 Completed CK-Creatinine Phosphokinase Stat Lab 01/25/22 15:19 Completed CMP Stat Lab 01/25/22 15:19 Completed D-DIMER QUANTITATIVE Stat Lab 01/25/22 15:19 Completed TROPONIN Q4H Lab 01/25/22 15:19 Completed TROPONIN Q4H Lab 01/25/22 19:00 Ordered TROPONIN Q4H Lab 01/25/22 23:00 Ordered Medication Summary Generic Name Dose Route Start Last Admin Trade Name Kristen PRN Reason Stop Dose Admin Sodium Chloride 500 mls @ 500 mls/hr 01/25/22 15:56 01/25/22 16:13 Sodium Chloride 0.9% 500 Ml IV 01/25/22 16:55 500 mls/hr .Q1H ONE Administration Discontinued Medications Generic Name Dose Route Start Last Admin Trade Name Kentrellq PRN Reason Stop Dose Admin Aspirin 324 mg 01/25/22 14:52 01/25/22 15:04 Aspirin 81 Mg Tab.Chew PO 01/25/22 14:53 Not Given STAT ONE Sodium Chloride Confirm 01/25/22 16:12 Sodium Chloride 0.9% 500 Ml Administered 01/25/22 16:13 Dose 500 mls @ ud IV .STK-MED ONE Lab/Rad Data: Laboratory Result Diagrams 01/25/22 15:19 01/25/22 15:19 Laboratory Results 01/25/22 01/25/22 01/25/22 Range/Units 15:19 15:19 15:19 WBC (4.0-10.5) x10^3/uL RBC (4.1-5.4) x10^6/uL Hgb (12.0-16.0) g/dL Hct (35-47) % MCV (78-100) fL MCH (26-32) pg MCHC (32-36) g/dL RDW (11.5-14.0) % Plt Count (150-450) x10^3/uL MPV (7.5-11.0) fL Gran % (36.0-66.0) % Immature Gran % (Auto) (0.00-0.4) % Nucleat RBC Rel Count (0.00-0.1) % Eos # (Auto) (0-0.5) x10^3/uL Immature Gran # (Auto) (0.00-0.03) x10^3u/L Absolute Lymphs (auto) (1.0-4.6) x10^3/uL Absolute Monos (auto) (0.0-1.3) x10^3/uL Absolute Nucleated RBC (0.00-0.01) x10^3u/L Lymphocytes % (24.0-44.0) % Monocytes % (0.0-12.0) % Eosinophils % (0.00-5.0) % Basophils % (0.0-0.4) % Absolute Granulocytes (1.4-6.9) x10^3/uL Basophils # (0-0.4) x10^3/uL D-Dimer 0.58 H (0.0-0.50) mg/L Sodium 137 (137-145) mmol/L Potassium 3.9 (3.5-5.1) mmol/L Chloride 104 (98-107) mmol/L Carbon Dioxide 26 (22-30) mmol/L Anion Gap 10.5 (5-15) MEQ/L BUN 12 (7-17) mg/dL Creatinine 0.67 (0.52-1.04) mg/dL Estimated GFR > 60.0 ML/MIN Glucose 96 (74-106) mg/dL Calcium 8.9 (8.4-10.2) mg/dL Total Bilirubin 0.40 (0.2-1.3) mg/dL AST 84 H (14-36) U/L ALT 41 H (0-35) U/L Alkaline Phosphatase 87 (38-126) U/L Creatine Kinase 60 (30-135) U/L Troponin I < 0.012 (0.000-0.034) ng/mL Serum Total Protein 6.9 (6.3-8.2) g/dL Albumin 3.8 (3.5-5.0) g/dL 01/25/22 Range/Units 15:19 WBC 7.2 (4.0-10.5) x10^3/uL RBC 4.56 (4.1-5.4) x10^6/uL Hgb 12.0 (12.0-16.0) g/dL Hct 39.8 (35-47) % MCV 87.3 (78-100) fL MCH 26.3 (26-32) pg MCHC 30.2 L (32-36) g/dL RDW 15.0 H (11.5-14.0) % Plt Count 229 (150-450) x10^3/uL MPV 10.2 (7.5-11.0) fL Gran % 61.8 (36.0-66.0) % Immature Gran % (Auto) 0.1 (0.00-0.4) % Nucleat RBC Rel Count 0.0 (0.00-0.1) % Eos # (Auto) 0.14 (0-0.5) x10^3/uL Immature Gran # (Auto) 0.01 (0.00-0.03) x10^3u/L Absolute Lymphs (auto) 2.00 (1.0-4.6) x10^3/uL Absolute Monos (auto) 0.56 (0.0-1.3) x10^3/uL Absolute Nucleated RBC 0.00 (0.00-0.01) x10^3u/L Lymphocytes % 27.8 (24.0-44.0) % Monocytes % 7.8 (0.0-12.0) % Eosinophils % 1.9 (0.00-5.0) % Basophils % 0.6 (0.0-0.4) % Absolute Granulocytes 4.44 (1.4-6.9) x10^3/uL Basophils # 0.04 (0-0.4) x10^3/uL D-Dimer (0.0-0.50) mg/L Sodium (137-145) mmol/L Potassium (3.5-5.1) mmol/L Chloride (98-107) mmol/L Carbon Dioxide (22-30) mmol/L Anion Gap (5-15) MEQ/L BUN (7-17) mg/dL Creatinine (0.52-1.04) mg/dL Estimated GFR ML/MIN Glucose (74-106) mg/dL Calcium (8.4-10.2) mg/dL Total Bilirubin (0.2-1.3) mg/dL AST (14-36) U/L ALT (0-35) U/L Alkaline Phosphatase (38-126) U/L Creatine Kinase (30-135) U/L Troponin I (0.000-0.034) ng/mL Serum Total Protein (6.3-8.2) g/dL Albumin (3.5-5.0) g/dL - Progress Progress: improved Air Movement: good Progress Note: 01/25/22 16:54 Chest x-ray shows left lower to mid lung atelectasis. No acute cardiopulmonary process. CTA of chest is negative for pulmonary embolus. There are no acute cardiopulmonary abnormalities. Blood Culture(s) Obtained: No Antibiotics given: No Counseled pt/family regarding: lab results, diagnosis, need for follow-up, rad results - Departure Departure Disposition: Home Clinical Impression: Postoperative atelectasis, Chest pain, non-cardiac Condition: Stable Critical Care Time: No Referrals: KRISTIN BENAVIDES [Primary Care Provider] - Follow up/PCP as directed Additional Instructions: Make sure you are up and walking and ambulating. Follow your postoperative instructions. Take your medications as prescribed
[2022-01-25] MEDS: BABY ASPIRIN 81 MG CHEW PO ONE (15:04)
--- NOTE | 2022-01-25 15:13 | XRAY ---
Indication: Chest pain. Status post cholecystectomy 3 days ago. Comparison: October 03, 2021 Portable chest demonstrates new left mid to lower lung discoid atelectasis. Remaining heart, right lung, and bony thorax normal.
[2022-01-25 15:25] LABS: Absolute Neutrophil Ct (ANC) 4.44 x10^3/uL (1.4-6.9); Basophil (Absolute #) 0.04 x10^3/uL (0-0.4); Eosinophil % 1.9 % (0.00-5.0); Eosinophil (Absolute #) 0.14 x10^3/uL (0-0.5); Hematocrit 39.8 % (35-47); Lymphocytes % 27.8 % (24.0-44.0); Mean Cell Volume 87.3 fL (78-100); Mean Corpuscular Hemoglobin 26.3 pg (26-32); Mean Corpuscular Hgb Concent. 30.2 g/dL (32-36); Mean Platelet Volume 10.2 fL (7.5-11.0); Monocyte (Absolute #) 0.56 x10^3/uL (0.0-1.3); Monocytes % 7.8 % (0.0-12.0); Neutrophil % 61.8 % (36.0-66.0); Platelet Count 229 x10^3/uL (150-450); Red Blood Count 4.56 x10^6/uL (4.1-5.4); White Blood Count 7.2 x10^3/uL (4.0-10.5)
[2022-01-25 15:42] LABS: ALBUMIN 3.8 g/dL (3.5-5.0); ALKALINE PHOSPHATASE 87 U/L (38-126); ANION GAP 10.5 MEQ/L (5-15); BLOOD UREA NITROGEN 12 mg/dL (7-17); CHLORIDE 104 mmol/L (98-107); CK-Creatinine Phosphokinase 60 U/L (30-135); Calcium 8.9 mg/dL (8.4-10.2); Carbon Dioxide 26 mmol/L (22-30); Creatinine 1 0.67 mg/dL (0.52-1.04); EST GLOMERULAR FILTRATION RATE > 60.0 ML/MIN; Glucose 96 mg/dL (74-106); Potassium 3.9 mmol/L (3.5-5.1); SGOT/AST 84 U/L (14-36); SGPT/ALT 41 U/L (0-35); SODIUM 137 mmol/L (137-145); Total Protein 6.9 g/dL (6.3-8.2)
[2022-01-25 15:54] VITALS: O2SAT 99
[2022-01-25] MEDS ORDERED: Sodium Chloride 0.9% 500 ML 500 ML IV ONE (16:12)
[2022-01-25] MEDS: Sodium Chloride 0.9% 500 ML 500 ML IV ONE (16:13)
--- NOTE | 2022-01-25 16:47 | XRAY ---
Indication: Chest pain, heaviness, and short of breath. Status post cholecystectomy. Multiple contiguous axial images obtained through the chest using 100 cc Isovue 370 contrast and PE protocol. Comparison: None Good opacification of the pulmonary arteries to include the lobar and segmental branches. No pulmonary embolus. Heart not enlarged. Aorta is normal in course and caliber. No pathologic mediastinal/hilar lymphadenopathy. Small hiatal hernia. Examinational lungs demonstrates bilateral lower lobe and lesser degree lingula subsegmental atelectasis. No suspicious pulmonary mass, infiltrate, effusion, or pneumothorax. Bony thorax intact. Limited upper abdomen demonstrates fatty liver, cholecystectomy clips, and 13.6 cm splenomegaly. Impression: 1. Negative pulmonary embolus. Bibasilar subsegmental atelectasis. No acute cardiopulmonary abnormalities. 2. Incidental small hiatal hernia, fatty liver, and splenomegaly.
[2022-01-25 17:24] VITALS: BP 118/66; PULSE 61
== END 2022-01-25 17:41 | disposition home or self-care (01) ==
LOC: ED 14:39
DX: J95.89 Other postprocedural complications and disorders of respiratory system, not elsewhere classified (principal); J98.11 Atelectasis; R07.89 Other chest pain; Z79.899 Other long term (current) drug therapy; Z28.310 Unvaccinated for COVID-19
CPT/HCPCS: 36415; 71045; 71260; 80053; 82550; 84484; 85025; 85379; 93005; 94760; 99283

== ENCOUNTER 2023-06-12 06:24 | Day surgery (SDC) | payer BC ==
[2023-06-12 06:56] LABS: HCG URINE TEST NEGATIVE (NEGATIVE)
[2023-06-12] MEDS: NEURONTIN PO ONE (06:56)
[2023-06-12] MEDS: Lactated Ringers 1,000 ML IV SCH (06:56)
[2023-06-12] MEDS: Decadron 4 MG PO ONE (06:56)
[2023-06-12] MEDS: TYLENOL EXTRA STRENGTH 500 MG PO ONE (06:57)
[2023-06-12] MEDS: celeBREX 100 MG PO ONE (06:57)
[2023-06-12 07:01] VITALS: RESP 16
[2023-06-12] MEDS ORDERED: CEFAZOLIN 2 GM-D5W BAG** 2 GM/50 ML ML IV ONE (07:16)
[2023-06-12] MEDS: CEFAZOLIN 2 GM-D5W BAG** 2 GM/50 ML ML IV SCH (07:17)
[2023-06-12] MEDS ORDERED: Naropin 0.5% 30 ML VIAL ONE ×2 (08:59→09:02)
[2023-06-12] MEDS ORDERED: Xylocaine-Mpf 2% 5 Ml Vial ONE (09:00)
[2023-06-12] MEDS ORDERED: SUBLIMAZE 100 MCG/2 ML ONE ×2 (09:04→12:43)
[2023-06-12] MEDS ORDERED: Versed 2 MG/2 ML Injection ONE (09:04)
[2023-06-12] MEDS ORDERED: Marcaine Mpf 0.5% Vial 30 Ml ONE (09:40)
[2023-06-12] MEDS ORDERED: Epinephrine Preservative Free 1 MG/ML ONE (09:42)
[2023-06-12] MEDS ORDERED: DIPRIVAN 200 MG/20 ML IV ONE (09:46)
[2023-06-12] MEDS ORDERED: ROCURONIUM BROMIDE IV ONE (10:40)
[2023-06-12] MEDS ORDERED: Lactated Ringers 1,000 ML IV ONE (13:18)
--- NOTE | 2023-06-12 13:44 | XRAY ---
Indication: Left foot Lapidus arthrodesis, medial collateral ligament repair, 2nd metatarsal humberto osteotomy, hammertoe 2nd digit, and plantar plate repair. Intraoperative fluoroscopy provided for 5 minute 44 seconds. 55 digital spot images images submitted for interpretation ultimately demonstrates 1st tarsometatarsal arthrodesis, 2nd metatarsal head humberto osteotomy, and fusion 2nd toe all with intact hardware. Correlate with intraoperative findings/report.
[2023-06-12 15:07] VITALS: BP 158/74; PULSE 88; TEMP 97; O2SAT 98
--- NOTE | 2023-06-12 15:22 | XRAY ---
Five minutes and 44 seconds of fluoroscopy was used in surgery for a left foot Lapidus arthrodesis, medial collateral ligament repair, 2nd metatarsal humberto osteotomy, hammertoe 2nd digit, and plantar plate repair.
--- NOTE | 2023-06-13 14:25 | OP ---
SURGERY DATE/TIME: 06/12/2023 1041 PREOPERATIVE DIAGNOSES: 1) Left foot pain. 2) Plantar plate tear. 3) Hallux abductovalgus. 4) Hammer toe. 5) Difficulty with ambulation. POSTOPERATIVE DIAGNOSES: 1) Left foot pain. 2) Plantar plate tear. 3) Hallux abductovalgus. 4) Hammer toe. 5) Difficulty with ambulation. PROCEDURES: 1) Lapidus arthrodesis. 2) Silver osteotomy. 3) Medial collateral reconstruction with lateral dispensatory ligament release. 4) Plantar plate repair. 5) Marissa osteotomy. 6) Hammer toe correction. SURGEON: Anjel Bolden DPM. CLINICAL NURSING INTERN: None. ANESTHESIA: General with a preoperative block. See anesthesia report for details. HEMOSTASIS: Thigh tourniquet set to 300 mm of Mercury for 120 total tourniquet minutes. ESTIMATED BLOOD LOSS: Approximately 5 cc. MATERIALS: Cat InCore Lapidus with a 5.9 x 28 mm post, a 3.5 x 42 and 3.5 x 30 compression screw. For the Marissa osteotomy a 2.0 x 14 mm screw. For the plantar plate, a MaxBraid and MCL repair with a JuggerKnot with Betta Link. Hammer toe correction with 2.5 x 36 variable compression screw, 4-0 Monocryl, 3-0 Nylon and 4-0 Nylon. INJECTABLES: See anesthesia report for details. INDICATION FOR SURGERY: Kristen is a very pleasant 48-year-old female who presented to my service with pain to the ball of the foot underneath the second metatarsal head. As a result, the patient has had subsequent surgical interventions for neuromas. However, this has been unsuccessful. As a result of her clinical examination, there was some instability of the first ray which gave me a high suspicion instead of a neuroma a plantar plate tear. The patient did have a positive John test as well as hypermobility of the first ray, which was reproducible with the peroneus longus activated. As a result, the patient was offered options. The patient had been dealing with this pain for quite some time and wished to proceed with surgical intervention in order to fix this issue. The patient understands all risks, complications and benefits of surgical intervention at this time including but not limited to infection, hematoma, seroma, possibility of delayed wound healing, nonwound healing and possible need for further surgical intervention at a later date. No guarantees were provided as to this intervention however the goal is to reduce pain this is not a cosmetic issue. Plenty of time was allowed for the patient to ask questions which were answered to her apparent satisfaction. It is at this time we decided to proceed. DESCRIPTION OF PROCEDURE AND FINDINGS: The patient was brought into the postoperative anesthesia care unit prior the procedure and provided a popliteal and saphenous block. Following this, the patient was brought to the OR and placed on the OR table in the supine position. At this time, general anesthesia was administered until the patient was sedated. Following this, a well-padded thigh tourniquet was applied to the patient's left lower extremity. The left lower extremity was prepped and draped in the typical sterile fashion and lowered onto the surgical field. At this time, attention was directed to the first tarsometatarsal joint under fluoroscopic guidance identifying the first tarsometatarsal joint where following manufacturers specifications the InCore Lapidus System was utilized to reduce the intermetatarsal angle sesamoid position as well as picking the plantar flexion of the first ray this was corrected utilizing a 5.9 x 28 InCore post with 3.5 x 42 and 3.5 x 30 screws. After assessing the position, we moved onto the second metatarsal where a Marissa osteotomy was performed utilizing 18 mm sagittal saw and we moved onto the Silver osteotomy at the medial aspect of the first metatarsal head where some arthritis was identified. A medial collateral ligament repair was necessary in order to bring the toe into normal position. From that standpoint, capsulotomy was performed and repaired framing the capsule around the resected bone. Attention was directed to the second metatarsal Marissa where an 18 mm sagittal saw was utilized to resect the second metatarsal head displacing the approximately 5 mm proximal respecting the metatarsal parabola this was pinned utilizing a 2.0 x 14 mm screw and then the overhang was set and resected. MaxBraid was then retrograded out the plantar aspect of the foot through first metatarsal head and then pulled through the proximal phalanx utilizing adhesion after making 2 mm drill holes in order to repair the plantar plate after having completed this. Following this, the hammer toe was corrected utilizing 18 mm sagittal saw resecting out the proximal phalangeal joint. At this time K-wire was retrograded out of the tip of the toe and then anterograded down the proximal phalanx. A 36 mm VPC screw was then utilized to check this position. Following this under fluoroscopy all positions were checked and deemed to be adequate. The capsule was repaired to the metatarsophalangeal joint as well as the tendon. Following this, copious amounts of sterile saline were utilized to flush the surgical sites. 4-0 Monocryl was utilized to coapt the subcutaneous skin edges and then 4-0 Nylon was utilized to coapt the skin edges in a horizontal mattress-type fashion. Following this a dressing consisting of Betadine, Adaptic, 4x4, Kerlix, ABD and VINICIUS was applied to the patients left lower extremity. The patient was then returned to the postoperative anesthesia care unit with vital signs stable and vascular status intact. The patient handled the anesthesia as well as the procedure without significant complication. Postoperative orders as indicated in the patients discharge chart.
== END 2023-06-12 15:06 | disposition home or self-care (01) ==
LOC: SDC 06:24
PROVIDERS: ATTEND Podiatrist Foot & Ankle Surgery
DX: M20.12 Hallux valgus (acquired), left foot (principal); M20.42 Other hammer toe(s) (acquired), left foot; M79.672 Pain in left foot; R26.2 Difficulty in walking, not elsewhere classified; S93.525A Sprain of metatarsophalangeal joint of left lesser toe(s), initial encounter
CPT/HCPCS: 28285; 28297; 28308; 28313; 73630; 76000; 76937; 81025; C1713; J0171; J0690; J2250; J2704; J2795; J3010; A9270-GY